=== PATIENT | male | born 1990 | race Caucasian/White ===

== ENCOUNTER 2020-02-29 13:34 | Emergency (ER) | payer MEDICAID, SELFPAY ==
[2020-02-29 13:36] VITALS: BP 135/90; PULSE 85; RESP 16; TEMP 36; O2SAT 97; BMI 24.3
--- NOTE | 2020-02-29 14:13 | ED.DCSUM_ITS ---
- ER Visit Summary Date of Service: 02/29/20 Chief Complaint: Right eye pain and blurry vision History of Present Illness: The patient is a 29 M who admits to right eye pain and blurry vision. This is been ongoing for about a week. He feels that his eye is getting more red. He has had tearing but no crusting or drainage. His vision is blurred out of the right eye. He wears contact lenses and he is not sure if his contact is still in his right eye. No injury. Physical Examination: Vital signs reviewed. Right eye exam reveals diffuse injection. There is no eyelid swelling. I do not see any foreign bodies. Extraocular motions are intact without pain. Pupils are equal. There still appears to be a contact lens in the right eye. The rest of the exam is unremarkable Test Results: None performed Emergency Department Course and Treatment: Patient appears to have a keratitis of the right eye. I remove the contact lens. Tetracaine and fluorescein was instilled into the eye. There is no corneal abrasions. No ulcerations. He does have diffuse injection. I will treat him with an antibiotic. 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 It may contain incorrect words, spelling, and punctuation that were not noted in review of the chart prior to signing ED Disposition - Plan for ED Patient: Disposition: Home or Assisted Living Instructions: ED Corneal Injury Contact Lens Referrals: Care Physician,No Primary [Primary Care Provider] -
[2020-02-29] MEDS: Fluorescein 1 MG STRIP 1 STRIP RIGHT EYE (14:24)
[2020-02-29] MEDS: Tetracaine 0.5% Ophthalmic Bottle 1 DRP RIGHT EYE (14:24)
== END 2020-02-29 14:25 | disposition home or self-care (01) ==
PROVIDERS: Emergency Provider Emergency Medicine
DX: H16.9 Unspecified keratitis (principal); Z72.0 Tobacco use
CPT/HCPCS: 99282